=== PATIENT | male | born 1945 | race Caucasian/White ===

== ENCOUNTER 2016-06-15 06:28 | Day surgery (SDC) | payer MEDICARE, OTHER ==
[2016-06-08 17:08] LABS: HEMATOCRIT 42.4 % (40.0-51.0); HEMOGLOBIN 13.6 g/dL (13.6-17.8)
[2016-06-08 17:17] LABS: ASCORBIC ACID (UR NOT ORDER) NEG (NEG); BILIRUBIN, URINE NEGATIVE (NEG); KETONE, URINE NEGATIVE (NEG)
[2016-06-08 17:33] LABS: BUN (BLOOD UREA NITROGEN) 24 MG/DL (6-23); CALCIUM, SERUM 8.8 MG/DL (8.5-10.4); CHLORIDE, SERUM 110 MMOL/L (96-112); CO2 (CARBON DIOXIDE) 28 MMOL/L (24-34); CREATININE 1.04 MG/DL (0.70-1.30); GFR AFRICAN AMERICAN 85 ML/MIN (>=60); GFR NON AFRICAN AMERICAN 73 ML/MIN (>=60); GLUCOSE, SERUM 96 MG/DL (60-99); POTASSIUM, SERUM 4.1 MMOL/L (3.5-5.3); SODIUM, SERUM 146 MMOL/L (135-148)
--- NOTE | ~2016-06-15 | OP ---
Record Of Operation [facility] [address] [place]. [address] NAME: ROBERT AMAYA : 49 STATUS : [facility]#: [id number] AGE: 70 ADM/REG DATE : 06/15/16 MR#: [id number] REPORT SERV DATE: 06/15/16 DICTATED BY: TYRONE NASH DATE: 06/15/16 REPORT STATUS : Draft TRANSCRIBED BY: MODL DATE: 06/15/16 DATE OF PROCEDURE: 06/15/2016 PREOPERATIVE DIAGNOSIS: Right knee medial meniscal tear. 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 PROCEDURE PERFORMED: Right knee arthroscopy with partial medial lateral meniscectomy, synovectomy, medial femoral condyle, debriding chondroplasty with joint debridement where appropriate. SURGEON: Tyrone Nash M.D. NEONATAL SOCIAL WORKER: Ilene Dai. ANESTHESIA: General. PROCEDURE IN DETAIL: The patient is clearly identified, and after obtaining informed consent, he is brought to the operating room at [facility] where he is induced under general anesthesia as his right lower extremity prepped and draped in the usual manner. This concluded, after an appropriate time-out procedure is performed. RICCO exsanguination is performed and tourniquet is elevated to 350 mmHg and successfully tested, at which point, anteromedial and anterolateral portals are formed. After time-out procedure is performed, arthroscopy begins revealing extensive synovitis with internal impingement, this is all debrided. 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 The patellofemoral tracking is excellent with [id number]-opwr chondromalacia not requiring any specific treatment. ACL and PCL are intact. The medial compartment reveals a complex medial meniscal tear, which is treated with a partial medial meniscectomy and there is chondromalacia grade 2+ along the medial femoral condyle diffusely which is debrided where appropriate as well. The lateral compartment reveals some chondromalacia, rather mild, but meniscal tearing as well which is treated with a partial lateral meniscectomy. This concluded, the joints inspected, realizing no further care is necessary, it is copiously irrigated with outflow cannula and drained. The portals are then closed. Ropivacaine and morphine are instilled within the joint, at which point, the leg is cleansed and dressed. The patient is allowed to awaken and transferred to the recovery room in stable condition having tolerated the procedure well. ANTONIA/EMRE Tyrone Nash M.D. Record Of [address] [address] NAME: ROBERT AMAYA : 49 STATUS : [facility] PAT#: [id number] AGE: 70 ADM/REG DATE : 06/15/16 MR#: [id number] REPORT SERV DATE: 06/15/16 DICTATED BY: TYRONE NASH DATE: 06/15/16 REPORT STATUS : Draft TRANSCRIBED BY: EMRE DATE: 06/15/16 / [id number] CC: Johanna Chilel SUSAN GAILE
[~2016-06-15 06:28] MED LIST: ASAB PO; CELEBREX1 PO; COREG6 PO; COZAAR100 MG PO; ENDOCET1 TA3 PO; FIORINALC PO; KLONO1 PO; LUNESTA2 M1 PO; PRILOSEC40 MG PO; VIMPAT150 MG PO; VITAMIN D31000 UNIT PO; ZONEGRAN PO; [UNRECOGNIZED DRUG - CODE] PO; [UNRECOGNIZED DRUG - OTHER]; [UNRECOGNIZED DRUG - OTHER]
== END 2016-06-15 16:58 | disposition home or self-care (01) ==
LOC: SDC 06:28
PROVIDERS: Orthopaedic Surgery
PROC: 0SBC4ZZ Excision of Right Knee Joint, Percutaneous Endoscopic Approach (ICD-10-PCS; principal; 2016-06-15 07:45)
DX: S83.231A Complex tear of medial meniscus, current injury, right knee, initial encounter (principal); S83.281A Other tear of lateral meniscus, current injury, right knee, initial encounter; M65.861 Other synovitis and tenosynovitis, right lower leg; M94.261 Chondromalacia, right knee; I10 Essential (primary) hypertension; G47.30 Sleep apnea, unspecified; G40.909 Epilepsy, unspecified, not intractable, without status epilepticus; M17.0 Bilateral primary osteoarthritis of knee; I48.91 Unspecified atrial fibrillation; Z79.82 Long term (current) use of aspirin; Z79.899 Other long term (current) drug therapy; Z79.891 Long term (current) use of opiate analgesic; Z79.52 Long term (current) use of systemic steroids; Z99.89 Dependence on other enabling machines and devices; Z98.890 Other specified postprocedural states; Z90.49 Acquired absence of other specified parts of digestive tract; Z90.89 Acquired absence of other organs; Z87.891 Personal history of nicotine dependence
CPT/HCPCS: 36415; 80048; 81001; 85014; 85018; 88304; 93005; A9270-GY; J0690; J1170; J2175; J2250; J2274; J2405; J2795; J3010